=== PATIENT | female | born 1975 | race Caucasian/White ===

== ENCOUNTER 2021-06-06 19:50 | Inpatient (IN) | payer OTHER ==
[~2021-06-06] VITALS: Ht 160 cm; Wt 115.8 kg
[2021-06-06 20:40] LABS: BASOPHIL 0.3 % (0-2); EOSINOPHIL 0 % (0-5); HGB 11.6 g/dl (12.5-16.0); LYMPHOCYTE 18.4 % (15-48); MCH 29.1 pg (25.0-31.0); MCHC 33.1 g/dL (32.0-36.0); MCV 87.9 fL (78.0-100.0); MONOCYTE 4.2 % (0-12); MPV 9.9 fL (6.0-9.5); NEUTROPHIL 76.1 % (41-80); NRBC 0; PLT 252 K/uL (150-400); RBC 3.98 M/uL (4.20-5.40); RDW 12.9 % (11.5-14.0); WBC 3.1 K/uL (4.0-10.5)
[2021-06-06 20:53] LABS: IRON % SATURATION 6.2 %SAT (20-50)
[2021-06-06 20:59] LABS: PRO-BNP 186 pg/mL (<125)
[2021-06-06 21:17] LABS: LACTIC ACID 1.3 mmol/L (0.4-1.9)
[2021-06-06 21:26] LABS: BILIRUBIN - TOTAL 0.5 mg/dL (0.2-1.0); BUN/CREAT RATIO (CALC) 9.9 RATIO; C-REACTIVE PROTEIN 10.2 mg/dL (<=0.90); CREATININE 0.71 mg/dL (0.51-0.95); GLOBULIN (CALCULATION) 4.4 g/dL; MAGNESIUM 1.8 mg/dL (1.8-2.4); POTASSIUM 4.6 mmol/L (3.5-5.1); TOTAL PROTEIN 7.4 g/dL (6.4-8.2)
[2021-06-07 04:25] LABS: BASOPHIL 0.4 % (0-2); EOSINOPHIL 0 % (0-5); HGB 11.6 g/dl (12.5-16.0); LYMPHOCYTE 13.9 % (15-48); MCH 29.7 pg (25.0-31.0); MCHC 34.1 g/dL (32.0-36.0); MONOCYTE 4.1 % (0-12); NEUTROPHIL 80.1 % (41-80); NRBC 0; PLT 252 K/uL (150-400); RBC 3.91 M/uL (4.20-5.40); WBC 2.7 K/uL (4.0-10.5)
[2021-06-07 04:56] LABS: BUN/CREAT RATIO (CALC) 10.9 RATIO; CREATININE 0.64 mg/dL (0.51-0.95); POTASSIUM 4.7 mmol/L (3.5-5.1)
--- NOTE | 2021-06-07 05:52 | NUR ---
PT OXYGEN SATURATION REMAINING AT 88-89. KAYKAY MARCH CALLED AND DUONEBS GIVEN. PT DROPPED INTO 80'S WHILE RECIEVING DUONEB. PT UNABLE TO RECOVER. RN AT BEDSIDE ENCOURAGING AND EDUCATING ON SLOW DEEP BREATHING. O2 SENSOR CHANGED SITES AND OXYGEN SATURATION IS ACCURATE AT 80%. DEVAN MARCH CALLED AND VAPOTHERM ORDERED. BREATH SOUNDS EXTREMELY DIMINISHED.
--- NOTE | 2021-06-07 14:00 | NUR ---
REMOVED PT RING AFTER INTUBATION. PLACED IN SPECIMIN CUP WITH LABEL AND PUT IN PT BELONGING BAG ALONG WITH OTHER BELONGINGS.
--- NOTE | 2021-06-07 18:35 | NUR ---
DR. DAVE CALLED AT APPROXIMATELY 1350 TO INFORM HIM THAT PT O2 SAT HAD DROPPED TO MID 80S DISPITE INCREASING HER VAPOTHERM TO 38L O2 INSTEAD OF 30L O2. PT WAS SLEEPING AT THIS TIME AND WHEN ROUSED, HER O2 SAT CAME TO 92-93%. PT WAS TACHYPNIC AND HAD VERY LABORED BREATHING AT THIS TIME. MD DECIDED IT WAS TIME TO INTUBATE. GLIDE SCOPE WAS OBTAINED, RT CAME TO ASSIST. PT VOMITTED BEFORE PARALYTIC WAS GIVEN. ETOMADATE AND SUCCUXOCHOLINE GIVEN AT 1405. DR. DAVE ATTEMPTED TO INTUBATE [address] TIM[address]CCESS AND [address] KAISER WAS CALLED IN. HE SUCCESSFULLY INTUBATED AT 1410 BUT THE ET TUBE HAD A LEAK IN THE CUFF. PT BEGAN TO GET RESTLESS AND START TO FIGHT INTUBATION SO 10MG OF VERSED AND 100MG OF FENTANYL WAS GIVEN AT 1425. BOUJIE WAS OBTAINED AND PT WAS REINTUBATED BY DR KAISER AT 1436 ONCE LEAK WAS CONFIRMED. OG TUBE PLACED AT THIS TIME WELL. CHEST XRAY OBTAINED FOR PLACEMENT WHERE TUBE HAD TO BE PULLED OUT 1CM. CHEST XRAY CONFIRMED PLACEMENT OF ET TUBE WELL OG TUBE. OG TUBE TO LOW WALL SUCTION WHERE BROWN CONTENTS WERE SUCTIONED. VECARONIUM WAS STARTED AT [address] DAVE AT 1.2 MCG/KG/MIN. BIS MONITOR APPLIED WITH A GOAL OF 50-70. CENTRAL LINE PLACED AT 1600 TO RIGHT IJ. ARTERIAL LINE PLACED AT 1700 TO RIGHT WRIST. PT REMAINED STABLE THROUGHOUT PROCESS ONCE O2 WAS ESTABLISHED ABOVE 90%.
[2021-06-08 05:13] LABS: BASOPHIL 0 % (0-2); EOSINOPHIL 0 % (0-5); HCT 31.7 % (37.0-47.0); HGB 10.7 g/dl (12.5-16.0); LYMPHOCYTE 19.9 % (15-48); MCH 29.2 pg (25.0-31.0); MCHC 33.8 g/dL (32.0-36.0); MCV 86.6 fL (78.0-100.0); MONOCYTE 6.8 % (0-12); MPV 10.1 fL (6.0-9.5); NEUTROPHIL 71.3 % (41-80); NRBC 0; PLT 248 K/uL (150-400); RBC 3.66 M/uL (4.20-5.40); WBC 2.5 K/uL (4.0-10.5)
[2021-06-08 05:29] LABS: ALBUMIN 2.4 g/dL (3.4-5.0); BILIRUBIN - TOTAL 0.6 mg/dL (0.2-1.0); C-REACTIVE PROTEIN 6.7 mg/dL (<=0.90); CREATININE 0.61 mg/dL (0.51-0.95); GLOBULIN (CALCULATION) 3.8 g/dL; POTASSIUM 4.2 mmol/L (3.5-5.1); TOTAL PROTEIN 6.2 g/dL (6.4-8.2)
--- NOTE | 2021-06-08 14:21 | NUR ---
DMITRIY LOPEZ PICKED UP HER RING
== END 2021-06-08 16:38 | disposition other institution (70) | DRG 208 ==
LOC: FER 19:50 → FICU 23:50
PROVIDERS: Allergy & Immunology Allergy; Emergency Medicine; Nurse Practitioner; ADMIT Internal Medicine
PROC: 5A0945A Assistance with Respiratory Ventilation, 24-96 Consecutive Hours, High Flow/Velocity Cannula (ICD-10-PCS; principal; 2021-06-06)
PROC: 5A1945Z Respiratory Ventilation, 24-96 Consecutive Hours (ICD-10-PCS; 2021-06-07)
PROC: XW033E5 Introduction of Remdesivir Anti-infective into Peripheral Vein, Percutaneous Approach, New Technology Group 5 (ICD-10-PCS; 2021-06-07)
PROC: 05HM33Z Insertion of Infusion Device into Right Internal Jugular Vein, Percutaneous Approach (ICD-10-PCS; 2021-06-07)
PROC: B543ZZA Ultrasonography of Right Jugular Veins, Guidance (ICD-10-PCS; 2021-06-07)
PROC: 03HY32Z Insertion of Monitoring Device into Upper Artery, Percutaneous Approach (ICD-10-PCS; 2021-06-07)
PROC: 0BH17EZ Insertion of Endotracheal Airway into Trachea, Via Natural or Artificial Opening (ICD-10-PCS; 2021-06-07)
PROC: XW033H5 Introduction of Tocilizumab into Peripheral Vein, Percutaneous Approach, New Technology Group 5 (ICD-10-PCS; 2021-06-07)
DX: U07.1 COVID-19 (principal); J12.82 Pneumonia due to coronavirus disease 2019; J96.01 Acute respiratory failure with hypoxia; T17.918A Gastric contents in respiratory tract, part unspecified causing other injury, initial encounter; Z90.710 Acquired absence of both cervix and uterus; Z90.49 Acquired absence of other specified parts of digestive tract
CPT/HCPCS: 31500; 36415; 36600; 71045; 71275; 80048; 80053; 82728; 82803; 83540; 83550; 83605; 83615; 83735; 83880; 84145; 84484; 85025; 86140; 87088; 93005; 94002; 94640; 94664; 94667; 94668; 94760; C9113; C9399; J0456; J1100; J1170; J1650; J1885; J2250; J2270; J2405; J2543; J3010; J3262; J7030; J7050; Q9967; U0002